=== PATIENT | female | born 1955 | race Two or more races ===

== ENCOUNTER 2017-09-04 16:04 | Observation (INO) | payer SELFPAY ==
[2017-09-04 17:16] LABS: APPEARANCE,URINE CLEAR; BILIRUBIN,URINE NEGATIVE (NEGATIVE); GLUCOSE, URINE >=500 mg/dL (NEGATIVE); KETONES,URINE NEGATIVE (NEGATIVE); LEUKOCYTE ESTERASE,URINE SMALL (NEGATIVE); NITRITE,URINE NEGATIVE (NEGATIVE); PROTEIN,URINE NEGATIVE (NEGATIVE); URINE SPECIFIC GRAVITY 1.002; UROBILINOGEN,URINE NEGATIVE mg/dL (<2.0)
[2017-09-04 17:26] LABS: RBC,URINE 0-1 /HPF
--- NOTE | 2017-09-04 18:12 | ER Document Report ---
ED Medical Screen (RME) - General Mode of Arrival: Wheelchair Information source: Patient, Relative - daughter TRAVEL OUTSIDE OF THE [place].S. IN LAST 30 DAYS: No - HPI Patient complains to provider of: Weakness and syncopal episodes Onset: This morning Associated Symptoms: Other - see notes above <FRANCISCA MORALES - Last Filed: 09/04/17 18:28> <MICHELINE WELLS - Last Filed: 09/04/17 21:12> - General Chief Complaint: Chest Pain Stated Complaint: CHEST PAIN Time Seen by Provider: 09/04/17 17:39 Notes: Patient is Setswana speaking and all dialogue was translated via [employer]. 61 year old female with history of non-Hodgkin's lymphoma (last chemo treatment 1.5 years ago in [facility]) presents to the ED complaining of left sided weakness that has been intermittent for 2 months (3 episodes in total; first two lasting 15 minutes most recent lasting a whole day) and 2 syncopal episodes that occurred today. Patient explains that prior to her left sided weakness, she was experiencing generalized weakness after finishing her chemotherapy treatments. Patient was told by her oncologist in [facility] that this is normal with treatment. Patient is additionally complaining of left sided body numbness and pain. Patient has been having difficulty walking for the past week in addition to dizziness and vomiting. Patient also complains of right groin pain, shortness of breath, and right chest pain which radiates to the right back. Patient denies any recent trauma or fall. Patient reports weakness to the point that she is unable to walk unassisted. Patient had a fever 2 days ago. Patient reports main reason for ED care is because of her difficulty walking and syncopal episodes. (FRANCISCA MORALES) - Related Data Allergies/Adverse Reactions: No Known Allergies Allergy (Unverified 09/04/17 16:13) Past Medical History - General Information source: Patient Malignancy Medical History: Reports: Hx Lymphoma - non-hodgkins <FRANCISCA MORALES - Last Filed: 09/04/17 18:28> Review of Systems - Review of Systems Constitutional: See HPI, Fever EENT: No symptoms reported Cardiovascular: See HPI, Chest pain, Syncope, Dizziness Respiratory: See HPI, Short of breath Gastrointestinal: See HPI, Vomiting Genitourinary: No symptoms reported Female Genitourinary: No symptoms reported Musculoskeletal: No symptoms reported Skin: No symptoms reported Hematologic/Lymphatic: No symptoms reported Neurological/Psychological: See HPI, Weakness, Numbness -: Yes All other systems reviewed and negative <FRANCISCA MORALES - Last Filed: 09/04/17 18:28> Physical Exam - General General appearance: Alert In distress: None - Respiratory Respiratory status: No respiratory distress Breath sounds: Normal - Cardiovascular Rhythm: Regular Heart sounds: Normal auscultation - Psychological Associated symptoms: Anxious <FRANCISCA MORALES - Last Filed: 09/04/17 18:28> - Vital signs Vitals: Temp Pulse Resp BP Pulse Ox 98.2 F 92 16 106/74 96 09/04/17 16:22 09/04/17 16:22 09/04/17 16:22 09/04/17 16:22 09/04/17 16:22 Course - Laboratory Result Diagrams: 09/04/17 18:15 09/04/17 18:15 <FRANCISCA MORALES - Last Filed: 09/04/17 18:28> - Laboratory Result Diagrams: 09/04/17 18:15 09/04/17 18:15 <MICHELINE WELLS - Last Filed: 09/04/17 21:12> - Re-evaluation Re-evalutation: 09/04/17 21:12 I personally performed the services described in the documentation, reviewed and edited the documentation which was dictated to the scribe in my presence, and it accurately records my words and actions. (MICHELINE WELLS) - Vital Signs Vital signs: Temp Pulse Resp BP Pulse Ox 98.2 F 92 12 102/74 99 09/04/17 16:22 09/04/17 16:22 09/04/17 19:01 09/04/17 19:01 09/04/17 19:03 - Laboratory Laboratory results interpreted by me: 09/04/17 09/04/17 09/04/17 16:38 18:15 18:15 RDW 14.8 H Lymphocytes % 45.8 H Glucose 259 H Magnesium 1.5 L Urine Glucose (UA) >=500 H Urine Blood SMALL H Ur Leukocyte Esterase SMALL H Doctor's Discharge <FRANCISCA MORALES - Last Filed: 09/04/17 18:28> <MICHELINE WELLS - Last Filed: 09/04/17 21:12> - Discharge Clinical Impression: Chest pain, rule out acute myocardial infarction Condition: Fair Disposition: ADMITTED OBSERVATION Scribe Documentation - Scribe Written by Scribe:: Negin Garcia, 09/04/2017 1827 acting as scribe for :: Long <FRANCISCA MORALES - Last Filed: 09/04/17 18:28>
[2017-09-04 18:35] LABS: ABSOLUTE EOSINOPHILS # (AUTO) 0.1 10^3/uL (0.0-0.6); ABSOLUTE LYMPHOCYTES (AUTO) 2.5 10^3/uL (0.5-4.7); ABSOLUTE MONOCYTES (AUTO) 0.3 10^3/uL (0.1-1.4); ABSOLUTE NEUT (AUTO) 2.5 10^3/uL (1.7-8.2); BASOPHILS % (AUTO) 0.9 % (0-2); EOSINOPHILS % (AUTO) 1.9 % (0-6); HEMATOCRIT 38.5 % (36.0-47.0); HGB HCT DIFFERENCE 0.5; LYMPHOCYTES % (AUTO) 45.8 % (13-45); MEAN CORPUSCULAR HEMOGLOBIN 29.2 pg (27.0-33.4); MEAN CORPUSCULAR HGB CONC 33.9 g/dL (32.0-36.0); MEAN CORPUSCULAR VOLUME 86 fl (80-97); MONOCYTES % (AUTO) 5.7 % (3-13); RED BLOOD COUNT 4.45 10^6/uL (3.72-5.28); RED CELL DISTRIBUTION WIDTH 14.8 % (11.5-14.0); SEGMENTED NEUTROPHILS % (AUTO) 45.7 % (42-78); WHITE BLOOD COUNT 5.4 10^3/uL (4.0-10.5)
--- NOTE | 2017-09-04 18:46 | RADIOLOGY REPORT (SQ) ---
EXAM DESCRIPTION: CT HEAD WITHOUT COMPLETED DATE/TIME: 09/04/2017 6:30 pm REASON FOR STUDY: Intermittent L sided weakness and numbness COMPARISON: None. TECHNIQUE: Axial images acquired through the brain without intravenous contrast. Images reviewed wi th bone, brain and subdural windows. Images stored on PACS. All CT scanners at this facility use dose modulation, iterative reconstruction, and/or weight based d osing when appropriate to reduce radiation dose to as low as reasonably achievable (ALARA). [facility]: Dose Right [facility]: CareDose [facility]: Dose Right [facility]: Teradose 4D [facility]: Vivogig RADIATION DOSE: mGy. LIMITATIONS: None. FINDINGS: VENTRICLES: Normal size and contour. CEREBRUM: No masses. No hemorrhage. No midline shift. No evidence for acute infarction. Normal gra y/ white differentiation. There is a small area of decreased attenuation in the white matter on the left on image 26 series 2. CEREBELLUM: No masses. No hemorrhage. No alteration of density. No evidence for acute infarction. EXTRAAXIAL SPACES: No fluid collections. No masses. ORBITS AND GLOBE: No intra- or extraconal masses. Normal contour of globe without masses. CALVARIUM: No fracture. PARANASAL SINUSES: Mild mucoperiosteal thickening is seen in the left maxillary sinus. SOFT TISSUES: No mass or hematoma. OTHER: No other significant finding. IMPRESSION: 1. There may be very mild chronic microvascular ischemia. There is no acute intracrani al finding. 2. Mild left maxillary sinus disease. EVIDENCE OF ACUTE STROKE: NO. COMMENT: Quality ID # [id number]: Final reports with documentation of one or more dose reduction techniques (e.g., Automated exposure control, adjustment of the mA and/or kV according to patient size, use of iterative reconstruction technique) TECHNICAL DOCUMENTATION: JOB ID: [id number]- All Rights Reserved
--- NOTE | 2017-09-04 18:47 | RADIOLOGY REPORT (SQ) ---
EXAM DESCRIPTION: CHEST SINGLE VIEW COMPLETED DATE/TIME: 09/04/2017 6:28 pm REASON FOR STUDY: CP/SOB COMPARISON: None. EXAM PARAMETERS: NUMBER OF VIEWS: One view. TECHNIQUE: Single frontal radiographic view of the chest acquired. RADIATION DOSE: NA LIMITATIONS: None. FINDINGS: LUNGS AND PLEURA: No opacities, masses or pneumothorax. No pleural effusion. MEDIASTINUM AND HILAR STRUCTURES: No masses. Contour normal. HEART AND VASCULAR STRUCTURES: Heart normal in size. Normal vasculature. BONES: No acute findings. HARDWARE: None in the chest. OTHER: No other significant finding. IMPRESSION: NO ACUTE RADIOGRAPHIC FINDING IN THE CHEST. TECHNICAL DOCUMENTATION: JOB ID: [id number] [employer]- All Rights Reserved
[2017-09-04 18:53] LABS: ALANINE AMINOTRANSFERASE 48 U/L (9-52); ALBUMIN 4.3 g/dL (3.5-5.0); ALKALINE PHOSPHATASE 100 U/L (38-126); ANION GAP 14 (5-19); ASPARTATE AMINO TRANSFERASE 27 U/L (14-36); BILIRUBIN,DIRECT 0.4 mg/dL (0.0-0.4); BILIRUBIN,TOTAL 0.5 mg/dL (0.2-1.3); BLOOD UREA NITROGEN 12 mg/dL (7-20); CALCIUM 10.1 mg/dL (8.4-10.2); CARBON DIOXIDE 24 mmol/L (22-30); CHLORIDE 101 mmol/L (98-107); CREATININE RESULT 0.58 mg/dL (0.52-1.25); GLUCOSE 259 mg/dL (75-110); MAGNESIUM 1.5 mg/dL (1.6-2.3); POTASSIUM 4.6 mmol/L (3.6-5.0); SODIUM 138.5 mmol/L (137-145); TOTAL PROTEIN 7.6 g/dL (6.3-8.2)
--- NOTE | 2017-09-04 20:40 | ER Document Report ---
ED Cardiac - General Mode of Arrival: Wheelchair Information source: Patient TRAVEL OUTSIDE OF THE [place] IN LAST 30 DAYS: No <RADHA HENNESSY - Last Filed: 09/04/17 21:06> <KAROL GIL - Last Filed: 09/04/17 22:38> - General Chief Complaint: Chest Pain Stated Complaint: CHEST PAIN Time Seen by Provider: 09/04/17 17:39 Notes: Patient is a 61 year old female with a history of hypertension and diabetes presents to the emergency department with parent partner at bedside complaining of multiple symptoms chest pain, dizziness, headache and weakness onset today. Patient states that he headache is localized to the back of her head. Patient also complains of blurry vision. Patient denies any fever or difficulty speaking. Patient states that she has also had leg pain and numbness onset 3 days ago. Patient states she recently came from [facility] a month ago. (RADHA HENNESSY) correction to scribe note:patient's leg pain has been going on for 1 month, the weakness started 3 days ago and resolved 2 days ago, she felt it was related to her pain, chest pain started today. Headache is not associated with an injury. Blurry vision has been going on for a few months. (KAROL GIL) - Related Data Allergies/Adverse Reactions: No Known Allergies Allergy (Unverified 09/04/17 16:13) Home Medications: Current Home Medications Unobtainable [Unobtainable] 09/04/17 [History] Past Medical History - General Information source: Patient - Social History Smoking Status: Former Smoker Chew tobacco use (# tins/day): No Frequency of alcohol use: None Drug Abuse: None Patient has suicidal ideation: No Patient has homicidal ideation: No - Past Medical History Cardiac Medical History: Reports: Hx Hypertension Malignancy Medical History: Reports: Hx Lymphoma - non-hodgkins <RADHA HENNESSY - Last Filed: 09/04/17 21:06> - Social History Family History: Hypertension Endocrine Medical History: Reports: Hx Diabetes Mellitus Type 2 <KAROL GIL - Last Filed: 09/04/17 22:38> Review of Systems - Review of Systems Constitutional: See HPI, Weakness EENT: See HPI, Blurred vision Cardiovascular: See HPI, Chest pain, Dizziness Respiratory: No symptoms reported Gastrointestinal: No symptoms reported Genitourinary: No symptoms reported Female Genitourinary: No symptoms reported Musculoskeletal: Muscle stiffness, Other - leg pain bilaterally <RADHA HENNESSY - Last Filed: 09/04/17 21:06> - Review of Systems Neurological/Psychological: See HPI, Weakness, Headaches, Numbness, Tremor -: Yes All other systems reviewed and negative <KAROL GIL - Last Filed: 09/04/17 22:38> Physical Exam <RADHA HENNESSY - Last Filed: 09/04/17 21:06> <KAROL GIL - Last Filed: 09/04/17 22:38> - Vital signs Vitals: Temp Pulse Resp BP Pulse Ox 98.2 F 92 16 106/74 96 09/04/17 16:22 09/04/17 16:22 09/04/17 16:22 09/04/17 16:22 09/04/17 16:22 - Notes Notes: GENERAL: Alert, interacts well. No acute distress. HEAD: Normocephalic, atraumatic. EYES: Pupils equal, round, and reactive to light. Extraocular movements intact. ENT: Oral mucosa moist, tongue midline. NECK: Full range of motion. Supple. Trachea midline. LUNGS: Expiratory rhonchi in RLL. No wheezes, rales,.No respiratory distress. HEART: Regular rate and rhythm. No murmurs, gallops, or rubs. ABDOMEN: Soft, non-tender. Non-distended. Bowel sounds present in all 4 quadrants. EXTREMITIES: Moves all 4 extremities spontaneously. No edema, radial and dorsalis pedis pulses 2/4 bilaterally. No cyanosis. Able to lift both legs. Pain with log roll bilaterally. Bilateral LE tender to palpation against hip greater trochantor. Able to wiggle toes despite saying that she is unable to. Sensations intact. NEUROLOGICAL: Alert and oriented x3. Normal speech. PSYCH: Normal affect, normal mood. SKIN: Warm, dry, normal turgor. No rashes or lesions noted. (RADHA HENNESSY) Able to feel me touching her toes without difficulty. (KAROL GIL) Course - Laboratory Result Diagrams: 09/04/17 18:15 09/04/17 18:15 <RADHA HENNESSY - Last Filed: 09/04/17 21:06> - Laboratory Result Diagrams: 09/04/17 18:15 09/04/17 18:15 <KAROL GIL - Last Filed: 09/04/17 22:38> - Re-evaluation Re-evalutation: 09/04/17 20:55 CBC unremarkable, CMP shows elevated glucose consistent with diabetes at 259, cardiac enzymes negative, TSH normal at 3.89, urinalysis shows greater than 500 glucose but no ketones, small leukocyte esterase, no symptoms of urinary tract infection. Chest x-ray unremarkable, head CT unremarkable, it does show some chronic microvascular ischemia but no old stroke. The patient's biggest concern seems to be the pain in her legs the pain in her legs appears to be consistent with diabetic neuropathy, there is no evidence of stroke at this time, patient's history was quite confusing however she has been able to move all 4 extremities for me without any difficulty despite the fact that she is telling me she cannot move her left foot. NIH stroke scale is 0. Discussed the patient's chest pain in this uncontrolled hypertensive diabetic with Dr. Garcia who agreed to place the patient on her service in admission status. (KAROL GIL) - Vital Signs Vital signs: Temp Pulse Resp BP Pulse Ox 97.6 F 66 19 119/72 96 09/04/17 22:33 09/04/17 22:33 09/04/17 22:33 09/04/17 22:33 09/04/17 22:33 - Laboratory Laboratory results interpreted by me: 09/04/17 09/04/17 09/04/17 16:38 18:15 18:15 RDW 14.8 H Lymphocytes % 45.8 H Glucose 259 H Magnesium 1.5 L Urine Glucose (UA) >=500 H Urine Blood SMALL H Ur Leukocyte Esterase SMALL H Discharge <RADHA HENNESSY - Last Filed: 09/04/17 21:06> - Discharge Admitting Provider: Reinier garcia Unit Admitted: Telemetry <KAROL GIL - Last Filed: 09/04/17 22:38> - Discharge Clinical Impression: Chest pain, rule out acute myocardial infarction Condition: Fair Disposition: ADMITTED OBSERVATION Scribe Attestation: 09/04/17 22:38 I personally performed the services described in the documentation, reviewed and edited the documentation which was dictated to the scribe in my presence, and it accurately records my words and actions. (KAROL GIL)
[2017-09-04 20:46] LABS: TROPONIN I < 0.012 ng/mL
[2017-09-04] MEDS ORDERED: ASPIRIN 325 MG TABLET PO ONE (20:57)
[2017-09-04] MEDS ORDERED: NITROGLYCERIN 0.4 MG/TAB 25 TAB/BOTTLE SL PRN (21:36)
[2017-09-04] MEDS ORDERED: NORMAL SALINE 1000 ML 1,000 ML IV PRN (21:36)
[2017-09-04] MEDS ORDERED: MORPHINE SULFATE 10 MG/ML INJ IV PRN (21:44)
[2017-09-04] MEDS ORDERED: ONDANSETRON 4 MG TAB.RAPDIS PO PRN (21:44)
[2017-09-04] MEDS ORDERED: GLUCAGON,HUMAN RECOMB 1 MG INJ IM PRN (21:45)
[2017-09-04] MEDS ORDERED: DEXTROSE 50%-WATER 25 GM/50 ML DISP.SYRIN IV PRN ×2 (21:45)
[2017-09-04] MEDS ORDERED: ACETAMINOPHEN 325 MG TABLET PO PRN (21:45)
[2017-09-04] MEDS ORDERED: DEXTROSE 40% GEL 15 GM TUBE PO PRN ×2 (21:45)
[2017-09-04] MEDS ORDERED: ATORVASTATIN CALCIUM 40 MG TABLET PO SCH (22:00)
[2017-09-04] MEDS: METOPROLOL TARTRATE PF/INJ 5 MG/5 ML SDV IV PRN ×4 (22:38→23:04)
[2017-09-04] MEDS: LISINOPRIL 5 MG TABLET PO SCH (23:00)
[2017-09-04] MEDS: GABAPENTIN 100 MG CAPSULE PO SCH (23:00)
[2017-09-04] MEDS: MAGNESIUM SULFATE/D5W 1 GM/100 ML RTUPB IV SCH ×2 (23:00→23:59)
[2017-09-04] MEDS ORDERED: METOPROLOL TARTRATE PF/INJ 5 MG/5 ML SDV IV PRN (23:10)
[2017-09-05 01:08] LABS: CREATINE KINASE MB 0.57 ng/mL (<4.55)
[2017-09-05 01:12] LABS: TROPONIN I < 0.012 ng/mL
--- NOTE | 2017-09-05 02:47 | EKG REPORT ---
SEVERITY:- ABNORMAL ECG - SINUS RHYTHM RIGHT AXIS DEVIATION PROBABLE INFERIOR INFARCT, OLD ABNRM R PROG, CONSIDER ASMI OR LEAD PLACEMENT : Confirmed by: Kartik Wooten MD 04-Sep-2017 19:54:20
[2017-09-05] MEDS: GABAPENTIN 100 MG CAPSULE PO SCH ×2 (06:07→13:53)
[2017-09-05] MEDS ORDERED: BISACODYL 5 MG TABEC PO ONE (06:28)
--- NOTE | 2017-09-05 06:39 | PDOC H&P ---
History of Present Illness Admission Date/PCP: 09/04/17 21:07 History of Present Illness: HERACLIO MONTOYA is a 61 year old female Danish only speaking Stateless female who presents to the emergency department with complaints of chest pain. Patient reports an achy feeling in her chest over the last several days. She does report a cough that is productive of melton sputum and fever but no chills. Patient reports she is also had night sweats for the last 2 weeks. It is then that I find the patient has a history of non-Hodgkin's lymphoma which was treated with surgery, chemotherapy, and radiation. Patient reports that her neck is tender underneath where she had her prior resection and she also notes that she has some axillary adenopathy as well. Patient also complains of constipation. She is referred to hospital service for evaluation of her chest pain. Past Medical History Cardiac Medical History: Reports: Hypertension Endocrine Medical History: Reports: Diabetes Mellitus Type 2 Malignancy Medical History: Reports: Lymphoma - non-hodgkins Past Surgical History Past Surgical History: Reports: Other - Neck surgery for lymphoma Social History Smoking Status: Former Smoker Frequency of Alcohol Use: None Hx Recreational Drug Use: No Hx Prescription Drug Abuse: No - Advance Directive Resuscitation Status: Full Code Surrogate healthcare decision maker:: Daughter, Erica Family History Family History: CAD, Hypertension Parental Family History Reviewed: Yes Children Family History Reviewed: Yes Sibling(s) Family History Reviewed.: Yes Medication/Allergy Home Medications: Unobtainable [Unobtainable] 09/04/17 Allergies/Adverse Reactions: No Known Allergies Allergy (Unverified 09/04/17 16:13) Review of Systems Constitutional: PRESENT: chills, fatigue, fever(s), headache(s), night sweats, weakness, weight loss. ABSENT: weight gain Eyes: PRESENT: visual disturbances Ears: ABSENT: hearing changes Nose, Mouth, and Throat: PRESENT: headache(s) Cardiovascular: PRESENT: chest pain. ABSENT: dyspnea on exertion, edema, orthropnea, palpitations Respiratory: PRESENT: cough, dyspnea, sputum. ABSENT: hemoptysis Gastrointestinal: PRESENT: constipation, nausea. ABSENT: abdominal pain, diarrhea, hematemesis, hematochezia, melena, vomiting Genitourinary: ABSENT: dysuria, hematuria Musculoskeletal: ABSENT: joint swelling Integumentary: ABSENT: rash, wounds Neurological: PRESENT: tingling. ABSENT: abnormal gait, abnormal speech, confusion, dizziness, focal weakness, syncope Psychiatric: ABSENT: anxiety, depression, homidical ideation, suicidal ideation Endocrine: PRESENT: polyuria. ABSENT: cold intolerance, heat intolerance, polydipsia Hematologic/Lymphatic: ABSENT: easy bleeding, easy bruising Physical Exam Vital Signs: Temp Pulse Resp BP Pulse Ox 97.6 F 71 19 119/72 96 09/04/17 22:33 09/05/17 02:30 09/04/17 22:33 09/04/17 22:33 09/04/17 22:33 General appearance: PRESENT: no acute distress, well-developed, well-nourished Head exam: PRESENT: atraumatic, normocephalic Eye exam: PRESENT: conjunctiva pink, EOMI, PERRLA. ABSENT: scleral icterus Ear exam: PRESENT: normal external ear exam Mouth exam: PRESENT: moist, tongue midline Neck exam: PRESENT: lymphadenopathy, other - Right lateral scar with small area of subcutaneous adenopathy. ABSENT: JVD, thyromegaly Respiratory exam: PRESENT: clear to auscultation barb, other - Axillary adenopathy. ABSENT: rales, rhonchi, wheezes Cardiovascular exam: PRESENT: RRR, +S1, +S2. ABSENT: diastolic murmur, rubs, systolic murmur Pulses: PRESENT: normal dorsalis pedis pul Vascular exam: PRESENT: normal capillary refill GI/Abdominal exam: PRESENT: hypoactive bowel sounds, soft. ABSENT: distended, firm, guarding, mass, organolmegaly, rebound, rigid, tenderness Rectal exam: PRESENT: deferred Extremities exam: PRESENT: full ROM. ABSENT: calf tenderness, clubbing, pedal edema Neurological exam: PRESENT: alert, awake, oriented to person, oriented to place , oriented to time, oriented to situation, CN II-XII grossly intact. ABSENT: motor sensory deficit Psychiatric exam: PRESENT: appropriate affect, normal mood. ABSENT: homicidal ideation, suicidal ideation Skin exam: PRESENT: dry, intact, warm. ABSENT: cyanosis, rash Results Laboratory Results: 09/05/17 00:30 CK-MB (CK-2) 0.57 Troponin I < 0.012 Impressions: Chest X-Ray 09/04/17 18:05 IMPRESSION: NO ACUTE RADIOGRAPHIC FINDING IN THE CHEST. Head CT 09/04/17 18:06 IMPRESSION: 1. There may be very mild chronic microvascular ischemia. There is no acute intracranial finding. 2. Mild left maxillary sinus disease. EVIDENCE OF ACUTE STROKE: NO. Assessment & Plan - Diagnosis (1) Chest pain, rule out acute myocardial infarction Is this a current diagnosis for this admission?: Yes Plan: Place patient on telemetry observation. Monitor for arrhythmia or ST segment changes.. Initiate patient on metoprolol, Lipitor, oxygen, nitroglycerin, morphine, and aspirin. Serial cardiac enzymes every 6 hours. Testing lipid panel in the morning. Will obtain stress test tomorrow due to patient's risk factors and concerning history of chest pain. (2) Poorly controlled diabetes mellitus Is this a current diagnosis for this admission?: Yes Plan: Check hemoglobin A1c. Place patient on glipizide. Hold metformin due to imaging. (3) Non Hodgkin's lymphoma Qualifiers: Non-Hodgkin lymphoma type: unspecified type Lymphoma site: neck Qualified Code(s): C85.91 - Non-Hodgkin lymphoma, unspecified, lymph nodes of head, face, and neck Is this a current diagnosis for this admission?: Yes Plan: Obtain CT of patient's neck and chest for evaluation of her lymphoma. Patient' s lymphocytes are slightly high. Pending this evaluation she will need to see oncology. (4) Diabetic neuropathy Qualifiers: Diabetes mellitus type: type 2 Diabetes mellitus complication detail: diabetic polyneuropathy Qualified Code(s): E11.42 - Type 2 diabetes mellitus with diabetic polyneuropathy Is this a current diagnosis for this admission?: Yes Plan: Place patient on Neurontin and titrate up accordingly (5) Hypertension Qualifiers: Hypertension type: essential hypertension Qualified Code(s): I10 - Essential (primary) hypertension Is this a current diagnosis for this admission?: Yes Plan: Place patient on losartan (6) Constipation Qualifiers: Constipation type: unspecified constipation type Qualified Code(s): K59.00 - Constipation, unspecified Is this a current diagnosis for this admission?: Yes Plan: Colace and senna
[2017-09-05] MEDS ORDERED: GLIPIZIDE 10 MG TABLET PO ONE (06:45)
[2017-09-05] MEDS: MAGNESIUM SULFATE/D5W 1 GM/100 ML RTUPB IV SCH ×2 (06:52→11:43)
[2017-09-05] MEDS ORDERED: DOCUSATE SODIUM 100 MG CAPSULE PO ONE (07:00)
[2017-09-05 07:04] LABS: CHOLESTEROL 165.85 mg/dL (0-200); CREATINE KINASE 77 U/L (30-135); Direct HDL 51 mg/dL (>40); TRIGLYCERIDES 135 mg/dL (<150)
[2017-09-05 07:14] LABS: DIRECT LDL 100 mg/dL (<100)
[2017-09-05 07:16] LABS: CREATINE KINASE MB 0.43 ng/mL (<4.55)
[2017-09-05 07:26] LABS: TROPONIN I < 0.012 ng/mL
[2017-09-05] MEDS ORDERED: HUM INSULIN NPH/REG INSULIN HM 100 UNIT/1 ML 3 ML SUBCUT SCH (08:00)
[2017-09-05] MEDS: INSULIN LISPRO 100 UNIT/ML 3 ML VIAL SUBCUT PRN ×2 (08:24→13:51)
[2017-09-05] MEDS ORDERED: ASPIRIN 325 MG TABLET, ENT COATED PO SCH (10:00)
[2017-09-05] MEDS ORDERED: REGADENOSON INJ 0.4 MG/5 ML DISP.SYRIN IV ONE (11:17)
[2017-09-05] MEDS ORDERED: AMINOPHYLLINE INJ/PF 250 MG/10 ML SDV IV ONE (11:17)
[2017-09-05] MEDS ORDERED: MAGNESIUM SULFATE/D5W 1 GM/100 ML RTUPB IV ONE (11:41)
[2017-09-05] MEDS: LISINOPRIL 5 MG TABLET PO SCH (11:46)
[2017-09-05 13:05] LABS: CREATINE KINASE MB 0.47 ng/mL (<4.55)
--- NOTE | 2017-09-05 13:27 | DRAGON STRESS TEST REPORT ---
Intravenous Lexiscan Cardiolite stress test using single photon emmision computerized tomography. Date of procedure: 09/05/2017. Ordering Provider: Dr. Lizama. Patient's status: In Patient. Indication: Chest pain. Coronary risk factors: Age, diabetes mellitus, hypertension, and dyslipidemia. Resting EKG: Sinus Rhythm. Low voltage throughout. Stress EKG:[ No changes of ischemia. Note prior to the stress testing the patient was asymptomatic but had a blood pressure of 88/53. The patient was given 2 50 cc of normal saline bolus and a blood pressure came up to 96/64. Subsequently the test was done. The patient had no chest pain or discomfort, and there were no arrhythmias seen. The patient has some dizziness without any EKG changes and with a stable blood pressure but 25 mg of Aminophyllin was given IV and the dizziness subsided. The patient's last blood pressure was . Reason for termination: Protocol. Conclusions: Normal EKG and hemodynamic response to IV Lexiscan. Nuclear data: At rest the patient was given 10.73 millicuries of technetium 99m sestamibi injected intravenously. As per protocol rest non gated SPECT images were obtained. Subsequently the patient was given intravenous Lexiscan at a dose of 0.4 mg in 5 mL intravenously, followed by flush with normal saline. Subsequently the stress dose of 31.3 millicuries of technetium 99m sestamibi was injected intravenously. As per protocol stress gated images were obtained. Nuclear interpretation: Review of images showed that there was motion artifact. In spite of this all segments of the myocardium had normal perfusion at rest, and normal perfusion post stress with IV Lexiscan. All segments of the myocardium had normal motion, contraction, and thickening by gated study. T. I D. ratio was normal at 1.04. Computer read rest, and stress left ventricular ejection fraction were 64 %, and 61 %, respectively. Conclusion: 1. There is no scintigraphic evidence of Lexiscan induced myocardial ischemia. 2. There is no scintigraphic evidence of myocardial infarction/scar. Recommendations: Aggressive risk factor modification, and treating the underlying co- morbidities. [facility]
--- NOTE | 2017-09-05 13:28 | RADIOLOGY REPORT (SQ) ---
EXAM DESCRIPTION: CT CERVICAL SPINE COMBO COMPLETED DATE/TIME: 09/05/2017 10:24 am REASON FOR STUDY: hx of lymphoma, recurrance of mass COMPARISON: None. TECHNIQUE: Axial images acquired through the cervical spine without and with intravenous contrast. Images reviewed with lung, soft tissue and bone windows. Reconstructed coronal and sagittal MPR imag es reviewed. Images stored on PACS. Patient injected with 80 mL out of Isovue 370. Creatinine 0.58. All CT scanners at this facility use dose modulation, iterative reconstruction, and/or weight based d osing when appropriate to reduce radiation dose to as low as reasonably achievable (ALARA). [facility]: Dose Right [facility]: CareDose [facility]: Dose Right [facility]: Teradose 4D [facility]: [employer] RADIATION DOSE: 19.7 mGy. LIMITATIONS: None. FINDINGS: There are peripherally calcified nodules in the lower neck soft tissues and supraclavicula r region which probably represent old treated lymphoma. The largest of these is in the midline lower neck, just ventral to the isthmus thyroid, 14 x 9 mm in diameter on axial image 70. A 9 mm peripher ally calcified soft tissue nodule is present at the thoracic inlet on axial image 76, and a 7 mm supr aclavicular peripherally calcified nodule is present on axial image 67. No bulky cervical adenopathy today. Cervical spine ALIGNMENT: Anatomic. MINERALIZATION: Normal. VERTEBRAL BODIES: No fractures or dislocation. DISCS: At C5-6, a small to moderate size central disc protrusion is present causing borderline centra l canal narrowing. No significant foraminal narrowing. Disc space loss of height at C6-7 with mild anterior and posterior osteophyte formation. No signific ant central or foraminal stenosis FACETS, LATERAL MASSES, POSTERIOR ELEMENTS: No fractures. No dislocation. No acute findings. HARDWARE: None in the spine. VISUALIZED RIBS: No fractures. LUNG APICES AND SOFT TISSUES: As above. No bulky adenopathy. Atrophic right lobe thyroid gland. Le ft lobe thyroid normal size with 1 cm colloid cyst. OTHER: No other significant finding. IMPRESSION: No bulky cervical adenopathy. TECHNICAL DOCUMENTATION: JOB ID: [id number] Quality ID # [id number]: Final reports with documentation of one or more dose reduction techniques (e.g., Au tomated exposure control, adjustment of the mA and/or kV according to patient size, use of iterative reconstruction technique) 2011 [employer]- All Rights Reserved
--- NOTE | 2017-09-05 13:30 | RADIOLOGY REPORT (SQ) ---
EXAM DESCRIPTION: CT CHEST WITH COMPLETED DATE/TIME: 09/05/2017 10:25 am REASON FOR STUDY: hx of lymphoma, recurrance of mass COMPARISON: CT soft tissue neck same date TECHNIQUE: CT scan of the chest performed using helical scanning technique with dynamic intravenous contrast injection. Images reviewed with lung, soft tissue and bone windows. Reconstructed coronal and sagittal MPR images reviewed. All images stored on PACS. All CT scanners at this facility use dose modulation, iterative reconstruction, and/or weight based d osing when appropriate to reduce radiation dose to as low as reasonably achievable (ALARA). [facility]: Dose Right [facility]: CareDose [facility]: Dose Right [facility]: Teradose 4D [facility]: [employer] CONTRAST TYPE AND DOSE: contrast/concentration: Isovue 370.00 mg/ml; Total Contrast Delivered: 80.0 ml; Total Saline Delivered: 51.0 ml RENAL FUNCTION: Creatinine 0.58 RADIATION DOSE: 14.1 . LIMITATIONS: None. FINDINGS: LUNGS AND PLEURA: No opacities, nodules, masses. No pneumothorax. No effusions. HILAR AND MEDIASTINAL STRUCTURES: No identified masses or abnormal nodes. HEART AND VASCULAR STRUCTURES: No aneurysm or dissection. No central pulmonary emboli. No pericardi al effusion. HARDWARE: None in the chest. UPPER ABDOMEN: No significant findings. Limited exam. THYROID AND OTHER SOFT TISSUES: No masses. No adenopathy. BONES: No significant finding. OTHER: No other significant finding. IMPRESSION: NORMAL CT OF THE CHEST WITH IV CONTRAST. TECHNICAL DOCUMENTATION: JOB ID: [id number] Quality ID # [id number]: Final reports with documentation of one or more dose reduction techniques (e.g., Au tomated exposure control, adjustment of the mA and/or kV according to patient size, use of iterative reconstruction technique) 2010 [employer]- All Rights Reserved
[2017-09-05 13:33] VITALS: BP 99/63
[2017-09-05 13:39] LABS: TROPONIN I < 0.012 ng/mL
[2017-09-05] MEDS ORDERED: GLIPIZIDE 10 MG TABLET PO SCH (17:00)
[2017-09-05] MEDS ORDERED: DOCUSATE SODIUM 100 MG CAPSULE PO SCH (18:00)
[2017-09-05] MEDS ORDERED: SENNOSIDES/DOCUSATE 8.6-50 MG 1 EACH TABLET PO SCH (22:00)
--- NOTE | 2017-09-10 06:49 | PDOC DISCHARGE SUMMARY ---
General - Admit/Disc Date/PCP Admission Date/Primary Care Provider: 09/04/17 21:07 Discharge Date: 09/05/17 - Discharge Diagnosis (1) Chest pain Is this a current diagnosis for this admission?: Yes (2) Constipation Is this a current diagnosis for this admission?: Yes (3) Diabetic neuropathy Is this a current diagnosis for this admission?: Yes (4) Hypertension Is this a current diagnosis for this admission?: Yes (5) Non Hodgkin's lymphoma Is this a current diagnosis for this admission?: Yes (6) Poorly controlled diabetes mellitus Is this a current diagnosis for this admission?: Yes - Additional Information Resuscitation Status: Full Code Home Medications: Gabapentin 300 mg PO BID #60 capsule 09/05/17 Glipizide [Glucotrol 10 mg Tablet] 10 mg PO BIDBS #60 tablet 09/05/17 Magnesium Oxide [Magox] 400 mg PO BID #60 tablet 09/05/17 Tramadol HCl 50 mg PO Q6HP PRN #60 tablet 09/05/17 History of Present Illness History of Present Illness: HERACLIO MONTOYA is a 61 year old female Indian only speaking [place] female who presented to the emergency department with complaints of chest pain. Patient reported an achy feeling in her chest over the last several days. She does report a cough that was productive of melton sputum and fever but no chills. Patient reported she also had been having night sweats for the last 2 weeks. Patient has a history of non-Hodgkin's lymphoma which was treated with surgery, chemotherapy, and radiation. Patient reported that her neck was tender underneath where she had her prior resection and she also noted that she had some axillary adenopathy as well. Patient also complained of constipation. She was referred to hospital service for evaluation of her chest pain Hospital Course Hospital Course: Patient was admitted to telemetry unit. There were no cardiac dysrhythmia. Troponin remained negative. Nuclear stress test was negative. Had lengthy conversation both with patient and daughter regarding diabetes management. Opted not to prescribe insulin since concerned about hypoglycemia. Both made aware that eventually patient will end up needing insulin. Encouraged to obtain diet recommendations by accessing [employer] Internet access. Patient has been advised to restart Metformin within 48 hours. She was to take 1000 mg in the morning and evening and 500 at lunch. Provided a prescription for glipizide. Patient and daughter had been also reminded need to get a local physician since there appears to be recurrence of non-Hodgkin's lymphoma. It is my understanding that patient does have resident status and is in the process of getting health insurance. Patient suffers from debilitating diabetic neuropathy. She has been encouraged as to be proactive in the management of diabetes in order to try to stablize this condition. Provided medication prescription and hopefully will help with symptoms. She was also made aware that lymphoma can make whole situation worse. Recommendations had been made to patient and daughter in Indian. Since patient had achieved maximum benefit of hospitalization stay prompted to discharge under stable condition Physical Exam Vital Signs: Temp Pulse Resp BP Pulse Ox 97.9 F 80 16 106/68 95 09/05/17 08:08 09/05/17 08:08 09/05/17 08:08 09/05/17 08:08 09/05/17 08:08 Intake & Output 09/04/17 09/05/17 09/06/17 06:59 06:59 06:59 Intake Total 918 Balance 918 Weight 73.1 kg General appearance: PRESENT: no acute distress, cooperative, well-developed, well-nourished Head exam: PRESENT: atraumatic, normocephalic Eye exam: PRESENT: conjunctiva pink, EOMI, PERRLA Mouth exam: PRESENT: moist Neck exam: PRESENT: full ROM. ABSENT: JVD, tenderness Respiratory exam: PRESENT: clear to auscultation barb Cardiovascular exam: PRESENT: diastolic murmur, RRR, systolic murmur Vascular exam: PRESENT: normal capillary refill GI/Abdominal exam: PRESENT: normal bowel sounds, soft. ABSENT: distended, tenderness Extremities exam: PRESENT: full ROM. ABSENT: joint swelling, pedal edema Musculoskeletal exam: PRESENT: full ROM Neurological exam: PRESENT: alert, oriented to person, oriented to place, oriented to time, CN II-XII grossly intact Psychiatric exam: PRESENT: appropriate affect, normal mood Results Laboratory Results: 09/05/17 06:23 Triglycerides 135 Cholesterol 165.85 LDL Cholesterol Direct 100 VLDL Cholesterol 27.0 HDL Cholesterol 51 09/05/17 09/05/17 09/05/17 00:30 06:23 06:23 Creatine Kinase 77 CK-MB (CK-2) 0.57 0.43 Troponin I < 0.012 < 0.012 Impressions: Chest X-Ray 09/04/17 18:05 IMPRESSION: NO ACUTE RADIOGRAPHIC FINDING IN THE CHEST. Head CT 09/04/17 18:06 IMPRESSION: 1. There may be very mild chronic microvascular ischemia. There is no acute intracranial finding. 2. Mild left maxillary sinus disease. EVIDENCE OF ACUTE STROKE: NO. Plan Discharge Plan: Discharge home Time Spent: Less than 30 Minutes
== END 2017-09-05 14:34 | disposition home or self-care (01) ==
LOC: ER 16:04 → EH 21:07 → 4S 22:23
PROVIDERS: ADMIT Family Medicine; ATTEND Family Medicine
DX: R07.9 Chest pain, unspecified (principal); K59.00 Constipation, unspecified; E11.42 Type 2 diabetes mellitus with diabetic polyneuropathy; I10 Essential (primary) hypertension; C85.91 Non-Hodgkin lymphoma, unspecified, lymph nodes of head, face, and neck; E11.65 Type 2 diabetes mellitus with hyperglycemia; R61 Generalized hyperhidrosis; R05 Cough; R50.9 Fever, unspecified; R59.0 Localized enlarged lymph nodes; R51 Headache; R63.4 Abnormal weight loss; H53.8 Other visual disturbances; R55 Syncope and collapse; R11.2 Nausea with vomiting, unspecified; R10.30 Lower abdominal pain, unspecified; R06.02 Shortness of breath; R26.2 Difficulty in walking, not elsewhere classified; Z92.3 Personal history of irradiation; Z92.21 Personal history of antineoplastic chemotherapy; Z98.890 Other specified postprocedural states; Z87.891 Personal history of nicotine dependence; Z82.49 Family history of ischemic heart disease and other diseases of the circulatory system; Z79.899 Other long term (current) drug therapy
CPT/HCPCS: 93005; 99285; 36415 ×2; 82553; 82962; 82550; 83735; 84443; 85025; 80053; 81001; 84484 ×2; 83036; 80061; 83880; 93017; 71010; 78452; 70450; 71260; 72127; 93010; G0378 ×2; A9500; J2785; J3490 ×2; J1815 ×2; J3475 ×2; J0280; Q9969